=== PATIENT | male | born 1930 | race Caucasian/White ===

== ENCOUNTER 2021-03-30 08:15 | Outpatient (CLI) | payer MEDICARE, BC ==
[2021-03-30] VITALS (12 sets, daily range): BP systolic 152–183; BP diastolic 70–86
[~2021-03-30] VITALS: Ht 180.3 cm; Wt 53.0 kg
[2021-03-30] MEDS ORDERED: OMEP40CA7 PO (08:52)
[2021-03-30] MEDS ORDERED: AMLO-187 PO (08:52)
[2021-03-30] MEDS ORDERED: LISI-130 PO (08:52)
[2021-03-30] MEDS ORDERED: ASPI-630 PO (08:52)
[2021-03-30] MEDS ORDERED: CYAN25008 PO (08:52)
[2021-03-30] MEDS ORDERED: ATOR20TA PO (08:52)
[2021-03-30] MEDS ORDERED: CHOL5000 PO (08:52)
[2021-03-30] MEDS ORDERED: MULT-245 PO (08:52)
[2021-03-30 08:55] LABS: BASO % 1 % (0-3); EOS # 0.2 x10^3/uL (0.0-0.7); EOS % 4 % (0-3); HEMATOCRIT 38.5 % (39.0-53.0); HEMOGLOBIN 13.1 g/dL (13.0-17.5); LYMPH # 1.5 x10^3/uL (1.0-4.8); LYMPH % 26 % (24-48); MEAN CORPUSCULAR HEMOGLOBIN 31 pg (25-35); MEAN CORPUSCULAR HGB CONC 34 g/dL (31-37); MEAN CORPUSCULAR VOLUME 89 fL (79-100); MONO # 0.5 x10^3/uL (0.0-1.1); MONO % 9 % (0-9); NEUT # 3.4 x10^3/uL (1.8-7.7); NEUT % 60 % (31-73); PLATELET COUNT 167 x10^3/uL (140-400); RED BLOOD COUNT 4.31 x10^6/uL (4.30-5.70); RED CELL DISTRIBUTION WIDTH 13.7 % (11.5-14.5); WHITE BLOOD COUNT 5.7 x10^3/uL (4.0-11.0)
[2021-03-30 09:05] LABS: PROTHROMBIN TIME PATIENT 13.9 SEC (11.7-14.0)
[2021-03-30] MEDS ORDERED: LIDOCAINE WITH 8.4% SOD BICARB 3 ML DISP.SYRIN. ONE (09:22)
[2021-03-30] MEDS ORDERED: MIDAZOLAM HCL/PF 2 MG/2 ML VIAL. ONE (09:34)
[2021-03-30] MEDS ORDERED: fentaNYL PF VIAL 100 MCG/2 ML VIAL ONE (09:34)
[2021-03-30] MEDS ORDERED: LIDOCAINE WITH 8.4% SOD BICARB 3 ML DISP.SYRIN. IJ ONE (10:00)
[2021-03-30] MEDS ORDERED: MIDAZOLAM HCL/PF 2 MG/2 ML VIAL. IV ONE (10:00)
[2021-03-30] MEDS ORDERED: fentaNYL PF VIAL 100 MCG/2 ML VIAL IV ONE (10:00)
--- NOTE | 2021-03-30 10:42 | RAD ---
Procedure: CT guided biopsy, right upper lobe pulmonary nodule 03/30/2021 Clinical Indication: Right upper lobe pulmonary nodule, indeterminate Consent: The procedure was explained in its entirety to the patient or the patients designated repres entative by a member of the treatment team, including a discussion of the risks, benefits and commonl y accepted alternatives to the procedure, as well as the expected consequences of no therapy whatsoev er. Discussion of the risks included, but was not limited to, those that are most frequent and thos e that are rare but possibly severe or life-threatening, as well as the possibility of unforeseen com plications. The the right upper chest was prepped and draped using maximum sterile technique, including the use o f: Current guideline approved cutaneous antisepsis, a large sterile sheet to establish a sterile fiel d. Additionally the creping machine operator wore a hat, mask, sterile gloves, during the procedure. CT imaging was performed demonstrating a nodule right upper lobe, grossly similar to comparison exam. 1%lidocaine was administered for local anesthesia. Under CT guidance 17-gauge needle was advanced in to the nodule. Core biopsy samples were obtained. The needle was removed. Repeat CT demonstrates no pneumothorax or other evidence of immediate complication. Sterile dressings were applied. Sedation: Conscious sedation was performed for 25 minutes. Sedation was carried while the patient wa s continually monitored by a member of the Radiology nursing staff. Continual cardiopulmonary monito ring was carried out during the procedure. Conclusion: CT-guided biopsy, right upper lobe pulmonary nodule CT DOSING PQRS STATEMENT: One or more of the following individualized dose reduction techniques were utilized for this examinat ion: 1. Automated exposure control 2. Adjustment of the mA and/or kV according to patient size 3. Use of iterative reconstruction technique Electronically signed by: Sunil Andres MD (03/30/2021 10:39 AM) [id number]
--- NOTE | 2021-03-30 15:33 | RAD ---
Single view of the chest. 03/30/2021 12:10 PM Indication: Reason: post lung biopsy / Spl. Instructions: / History: Comparison: Chest radiograph June 28 Findings: No pneumothorax is identified. Mild to moderate emphysematous changes are present. No pleur al effusion is seen. Mild cardiomegaly. Tortuosity and calcification thoracic aorta noted. No acute o sseous changes are identified. Impression: No pneumothorax or other evidence of acute cardiopulmonary process following lung biopsy Electronically signed by: Sunil Andres MD (03/30/2021 3:31 PM) [id number]
--- NOTE | 2021-04-01 14:08 | PATHOLOGY ---
[facility] Accession Number: [id number] . 01 Material submitted: . lung - RIGHT LUNG MASS CORE. Modifiers: right . 01 Clinical history: . RIGHT LUNG MASS . 02 Diagnosis: Lung tissue, CT guided right lung mass needle biopsy: - ADENOCARCINOMA, MODERATELY-WELL DIFFERENTIATED. SEE COMMENT. (JPM:lilly; 03/31/2021) S 03/31/2021 1607 Local . 02 Comment: Sections of the CT-guided right lung mass needle biopsy reveal segments of lung tissue. One of the biopsy segments shows an area of fibrosis which is infiltrated by malignant cells having an irregular acinar and solid nested appearance. The tumor cells have eosinophilic to focally vacuolated cytoplasm. The tumor cells possess enlarged, rounded to ovoid hyperchromatic nuclei containing prominent nucleoli. There are occasional mitotic figures present. The remaining lung tissue shows focal intra-alveolar hemorrhage and focal reactive pneumocytes lining alveolar septa. A panel of immunoperoxidase stains is obtained on A1 and yields the following results: . Cytokeratin 7: Tumor cells focally positive. Cytokeratin 20: Tumor cells negative. CDX2: Tumor cells negative. TTF-1: Tumor cells show focal heterogenous positivity. Napsin A: Tumor cells focally positive. . The morphologic and immunophenotypic findings are supportive of the diagnosis of a moderately-well differentiated adenocarcinoma and are consistent with pulmonary origin. The results are discussed with Dr. Andres on 04/01/21. (JPM:lilly; 03/31/2021) . Special stains performed: Immunoperoxidase stains for CK7, CK20, CDX2, TTF-1, and napsin A on A1 . 02 Electronically signed: . Faisal Martin MD, Pathologist NPI- [id number] . 01 Gross description: . The specimen is received in formalin, labeled "Yonatan Almaraz, right lung mass". Received are several minute fragments of pale zamarripa tissue measuring 0.5 x 0.2 x 0.1 cm in aggregate dimensions. The specimen is filtered and entirely submitted in cassette A1. (CAA; 03/30/2021) QAC/QAC 03/30/2021 1614 Local . 02 Pathologist provided ICD-10: C34.91 . 02 CPT . 048508, [id number], [id number] Specimen Comment: A courtesy copy of this report has been sent to [phone] Specimen Comment: Report sent to Performed at: 01 [facility] [address], [place], [place] [id number] MD Armando Verdin MD Phone: [phone] Performed at: 02 [facility] [address], [place] [id number] MD Faisal Martin MD Phone: [phone]
== END 2021-03-30 12:45 | disposition home or self-care (01) ==
LOC: INTRAD 08:15
PROVIDERS: ATTEND Specialist
DX: R91.8 Other nonspecific abnormal finding of lung field (principal); C34.91 Malignant neoplasm of unspecified part of right bronchus or lung; J43.9 Emphysema, unspecified; E78.00 Pure hypercholesterolemia, unspecified; I13.10 Hypertensive heart and chronic kidney disease without heart failure, with stage 1 through stage 4 chronic kidney disease, or unspecified chronic kidney disease; N18.30 Chronic kidney disease, stage 3 unspecified; I25.10 Atherosclerotic heart disease of native coronary artery without angina pectoris; Z87.891 Personal history of nicotine dependence; Z79.82 Long term (current) use of aspirin; Z79.899 Other long term (current) drug therapy; Z98.890 Other specified postprocedural states; Z88.8 Allergy status to other drugs, medicaments and biological substances
CPT/HCPCS: 32408; 36415; 71045; 85025; 85610; 88305; 88341; 88342; 99152; 99153; J2250; J3010; J3490

== ENCOUNTER → 2021-04-15 | Outpatient (CLI) | payer MEDICARE, BC ==
[2021-03-30 11:55] VITALS: BP 152/78
[~2021-04-15] MED LIST: AMLO-187 PO; ASPI-630 PO; ATOR20TA PO; CHOL5000 PO; CYAN25008 PO; LISI-130 PO; MULT-245 PO; OMEP40CA7 PO
--- NOTE | 2021-04-15 14:24 | RAD ---
EXAM: Dual modality PET-CT Scan DATE: 04/15/2021 RADIOPHARMACEUTICAL: 17.7 mCi F-18 fluorodeoxyglucose (FDG) IV. CLINICAL HISTORY: Lung cancer staging. COMPARISON: 03/09/2021 TECHNIQUE: Approximately 45 minutes after tracer administration, routine, attenuation-corrected Posit shay Emission Tomography (PET) images were obtained from the level of the base of the skull through th e level of the mid thighs. Tomographic reconstructions are reviewed in coronal, transaxial and sagitt al planes. Non-contrast CT imaging was performed for attenuation correction and localization purpose s only. These images do not constitute a diagnostic-quality CT examination and were not used to diag nose disease independently of the PET images. The blood glucose level was 84 mg/dL at the time of FDG administration. *One or more of the following individualized dose reduction techniques were utilized for this examina tion: 1. Automated exposure control. 2. Adjustment of the mA and/or kV according to patient size. 3. Use of iterative reconstruction technique. FINDINGS: There is increased radiotracer activity within SUV is 7.0 associated with a 2.2 cm irregula r lobulated and spiculated nodule within the anterior medial right upper lobe. There is no abnormal r adiotracer activity associated with tiny scattered bilateral parenchymal nodules measuring up to 4 mm , likely too small to characterize with PET. There is no suspicious radiotracer activity within media stinal or hilar lymph nodes. No additional abnormal radiotracer activity is seen. The CT portion of the exam demonstrates an irregular lobulated and spiculated nodule within the anter ior medial right upper lobe measuring 2.2 cm. There are multiple subcentimeter bilateral pulmonary no dules. For reference purposes, the largest of these measure 4 mm within the right upper lobe and 4 mm within the left upper lobe. There is pulmonary emphysema. There is no infiltrate, pleural effusion or pneumothorax. There is heav makayla calcified atherosclerotic plaque involving the aorta and coronary arteries. No pathologically enl arged lymph node is seen. There is calcified plaque involving the carotid bifurcations. The visualize d portion to the brain are unremarkable. No suspicious hepatic lesion is seen. The gallbladder is unremarkable. There are pancreatic calcifica tions likely due to chronic pancreatitis. The spleen is normal in size. The adrenal glands are unrema rkable. There is a small cyst within the upper pole the left kidney. There is left nephrolithiasis. T here is extensive colonic diverticulosis. There is aortobifemoral bypass. The bladder is unremarkable . The prostate is enlarged. There are degenerative changes throughout the spine, hips and shoulders. There is a small right maxillary sinus mucous retention cyst. IMPRESSION: 1. Radiotracer avid 2.2 cm irregular nodule within the anterior medial right upper lobe with an SUV o f 7.0, consistent with malignancy. 2. No evidence of metastatic lymphadenopathy. 3. Tiny bilateral parenchymal nodules measuring up to 4 mm. These are too small to characterize with PET, and remain indeterminant. 4. Pulmonary emphysema. 5. Please refer to the above report for additional findings regarding the non-PET portion of the exam . Electronically signed by: Tameka Teague MD (04/15/2021 2:21 PM) [id number]
== END ==
LOC: PETSC 11:13
PROVIDERS: ATTEND Radiology Radiation Oncology
DX: C34.11 Malignant neoplasm of upper lobe, right bronchus or lung (principal); J43.9 Emphysema, unspecified; R91.8 Other nonspecific abnormal finding of lung field; I70.0 Atherosclerosis of aorta; I25.10 Atherosclerotic heart disease of native coronary artery without angina pectoris; N28.1 Cyst of kidney, acquired; N20.0 Calculus of kidney; K57.30 Diverticulosis of large intestine without perforation or abscess without bleeding; N40.0 Benign prostatic hyperplasia without lower urinary tract symptoms; J34.89 Other specified disorders of nose and nasal sinuses; M47.819 Spondylosis without myelopathy or radiculopathy, site unspecified; M16.0 Bilateral primary osteoarthritis of hip; M19.012 Primary osteoarthritis, left shoulder; M19.011 Primary osteoarthritis, right shoulder
CPT/HCPCS: 78815; A9552